=== PATIENT | male | born 1970 | race African-American/Black ===

== ENCOUNTER 2016-09-06 20:22 | Emergency (ER) | payer OTHER ==
[2016-09-06 20:23] VITALS: BP 133/81; PULSE 94; RESP 16; TEMP 97.6; O2SAT 96
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
[2016-09-06] MEDS ORDERED: CYCL1TAB29 PO (22:18)
[2016-09-06] MEDS ORDERED: DICL75TA PO (22:18)
[2016-09-06] MEDS ORDERED: CYCLOBENZAPRINE HCL 10 MG TAB PO ONE (22:30)
[2016-09-06] MEDS ORDERED: NAPROXEN 500 MG TAB PO ONE (22:30)
--- NOTE | 2016-09-06 22:59 | RADRPT ---
EXAM DATE/TIME: 09/06/2016 22:04 [facility] COMPARISON: No previous studies available for comparison. INDICATIONS : Left shoulder pain, denies injury MEDICAL HISTORY : None. SURGICAL HISTORY : None. ENCOUNTER: Initial ACUITY: 3 months PAIN SCORE: 4/10 LOCATION: Left Shoulder FINDINGS: Two view examination of the right shoulder demonstrates no evidence of fracture or dislocation. The glenohumeral and acromioclavicular joints are maintained. Bony mineralization is normal. CONCLUSION: 1. No acute bony abnormality. David Armenta MD on September 06, 2016 at 22:57 Board Certified Radiologist. This report was verified electronically.
--- NOTE | 2016-09-06 23:00 | RADRPT ---
EXAM DATE/TIME: 09/06/2016 22:05 [facility] COMPARISON: No previous studies available for comparison. INDICATIONS : Neck pain, denies injury MEDICAL HISTORY : None. SURGICAL HISTORY : None. ENCOUNTER: Initial ACUITY: 3 months PAIN SCORE: 3/10 LOCATION: Bilateral Cervical spine FINDINGS: Two projection examination was performed. There is normal alignment and curvature of the vertebral b odies down to the level of C7. No evidence of fracture or subluxation. Vertebral body height is michele ntained. Moderate degenerative disc disease. The prevertebral soft tissues are of normal thickness. The atlanto-axial articulation is intact. CONCLUSION: 1. Moderate degenerative disc disease. No acute findings. David Armenta MD on September 06, 2016 at 22:58 Board Certified Radiologist. This report was verified electronically.
== END 2016-09-06 22:28 | disposition home or self-care (01) ==
LOC: NEPB 20:22
DX: M25.511 Pain in right shoulder (principal); M54.2 Cervicalgia; G89.29 Other chronic pain; F12.90 Cannabis use, unspecified, uncomplicated; F17.210 Nicotine dependence, cigarettes, uncomplicated
CPT/HCPCS: 72040; 73030; 99283

== ENCOUNTER 2016-10-19 11:51 | Emergency (ER) | payer OTHER ==
[~2016-10-19] VITALS: Ht 180.3 cm; Wt 100.0 kg
[~2016-10-19 11:51] MED LIST: CYCL1TAB29 PO; DICL75TA PO
[2016-10-19 11:54] VITALS: BP 138/77; PULSE 82; RESP 16; TEMP 97.7; O2SAT 98
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
[2016-10-19] MEDS ORDERED: METHOCARBAMOL 500 MG TAB PO ONE (12:45)
[2016-10-19] MEDS ORDERED: IBUPROFEN 800 MG TAB PO ONE (12:45)
[2016-10-19 12:59] LABS: BLOOD, URINE NEG (NEG); COMMENT (UR) CULT NOT INDICATED; CULTURE IF INDICATED CULT NOT INDICATED; GLUCOSE,URINE NEG (NEG); KETONE, URINE NEG (NEG); NITRITE,URINE NEG (NEG); SQUAMOUS EPITHELIAL CELL URINE 2 /hpf (0-5); URINE COLOR YELLOW (YELLW/STRAW)
[2016-10-19] MEDS ORDERED: CYCL1TAB29 PO (13:09)
[2016-10-19] MEDS ORDERED: DICL50TA PO (13:09)
== END 2016-10-19 13:28 | disposition home or self-care (01) ==
LOC: NEPB 11:51
DX: M54.5 Low back pain (principal); F10.20 Alcohol dependence, uncomplicated; F17.210 Nicotine dependence, cigarettes, uncomplicated; F12.10 Cannabis abuse, uncomplicated; X50.0XXA Overexertion from strenuous movement or load, initial encounter; Y93.9 Activity, unspecified; Y92.9 Unspecified place or not applicable; Y99.9 Unspecified external cause status
CPT/HCPCS: 81001; 99283

== ENCOUNTER 2017-03-01 13:23 | Emergency (ER) | payer OTHER ==
[~2017-03-01] VITALS: Ht 180.3 cm; Wt 100.0 kg
[~2017-03-01 13:23] MED LIST changes: +DICL50TA PO; -DICL75TA PO
[2017-03-01 13:26] VITALS: BP_SYST 120; BP_SYST 124; BP_DIAS 75; BP_DIAS 81; PULSE 86; PULSE 98; RESP 16; TEMP 97.8; TEMP 98.3; O2SAT 97
[2017-03-01] MEDS ORDERED: KETOROLAC TROMETHAMINE 60 MG/2 ML (IM) VIAL IM ONE (15:00)
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
[2017-03-01] MEDS ORDERED: HYDR-3533 PO (15:04)
[2017-03-01 15:22] VITALS: BP 118/76; TEMP 97.8
== END 2017-03-01 15:22 | disposition home or self-care (01) ==
LOC: NEPK 13:23
DX: S02.5XXA Fracture of tooth (traumatic), initial encounter for closed fracture (principal); F17.200 Nicotine dependence, unspecified, uncomplicated; W18.00XA Striking against unspecified object with subsequent fall, initial encounter; Y92.009 Unspecified place in unspecified non-institutional (private) residence as the place of occurrence of the external cause; Z79.899 Other long term (current) drug therapy
CPT/HCPCS: 96372; 99284; J1885